=== PATIENT | female | born 1955 | race Caucasian/White ===

== ENCOUNTER → 2017-07-25 | Outpatient (CLI) | payer MEDICARE, BC ==
[~2017-07-25] MED LIST: IOHEXOL 300 MG/ML 10ML VIAL. INT ART
[2017-07-25] MEDS: BUPIVACAINE MPF 0.5% 10 ML VIAL for KCIC. IJ (15:30)
[2017-07-25] MEDS: methylPREDNISolone ACETATE 40 MG/ML VIAL. INT ART (15:30)
[2017-07-25] MEDS: LIDOCAINE 1% Multi-Dose 20 ML VIAL. ID (15:30)
== END | disposition home or self-care (01) ==
LOC: KCIC 14:29
DX: M16.11 Unilateral primary osteoarthritis, right hip (principal); G89.29 Other chronic pain; Z88.2 Allergy status to sulfonamides; Z88.0 Allergy status to penicillin; Z79.01 Long term (current) use of anticoagulants
CPT/HCPCS: 20610; 77002; J1030